=== PATIENT | female | born 1965 | race Caucasian/White ===

== ENCOUNTER 2019-11-02 07:31 | Day surgery (SDC) | payer MEDICAID, SELFPAY ==
[~2019-11-02] VITALS: Ht 160 cm; Wt 104.3 kg
[~2019-11-02 07:31] MED LIST: ACET-8386 PO; DOCU-299 PO; IBUP-974 PO
[2019-11-02] MEDS ORDERED: LIDOCAINE 2% 100 MG/5 ML UJET TP ONE (09:32)
[2019-11-02] MEDS ORDERED: fentaNYL citrate 0.05 MG/ML VIAL ONE (09:32)
[2019-11-02] MEDS ORDERED: fentaNYL citrate 0.05 MG/ML VIAL IVP ONE (10:40)
== END 2019-11-02 10:25 | disposition home or self-care (01) ==
LOC: MDS 07:31 → MFCC 07:34 → MDS 10:25
PROVIDERS: ATTEND Internal Medicine Gastroenterology
DX: Z12.11 Encounter for screening for malignant neoplasm of colon (principal); K57.30 Diverticulosis of large intestine without perforation or abscess without bleeding; I10 Essential (primary) hypertension; E78.00 Pure hypercholesterolemia, unspecified; M19.90 Unspecified osteoarthritis, unspecified site; Z79.84 Long term (current) use of oral hypoglycemic drugs; Z79.82 Long term (current) use of aspirin; Z79.899 Other long term (current) drug therapy; Z20.828 Contact with and (suspected) exposure to other viral communicable diseases
CPT/HCPCS: 45378; J3010; U0003